=== PATIENT | male | born 1955 | race Caucasian/White ===

== ENCOUNTER 2020-10-05 08:00 | Day surgery (SDC) | payer OTHER ==
[~2020-10-05] VITALS: Ht 177.8 cm; Wt 98.0 kg
[~2020-10-05 08:00] MED LIST: EPLE25 PO; FERSU300 PO; FURO20 PO; GABA300 PO; LACT10SY PO; POTA10T PO
== END 2020-10-05 09:59 | disposition home or self-care (01) ==
LOC: ORSCSDS 08:00
PROVIDERS: Internal Medicine Gastroenterology
PROC: 06L38CZ Occlusion of Esophageal Vein with Extraluminal Device, Via Natural or Artificial Opening Endoscopic (ICD-10-PCS; principal; 2020-10-05 09:15)
DX: I85.01 Esophageal varices with bleeding (principal); K74.60 Unspecified cirrhosis of liver; F17.210 Nicotine dependence, cigarettes, uncomplicated; Z79.899 Other long term (current) drug therapy
CPT/HCPCS: J0461; J2001; J2250; J2405; J2704; J7120

== ENCOUNTER 2023-01-20 08:20 | Day surgery (SDC) | payer OTHER ==
[~2023-01-20] VITALS: Ht 172.7 cm; Wt 95.0 kg
--- NOTE | 2023-01-20 07:08 | NUR ---
01/20/23 [address] ACOSTA, SEE ANESTHESIA RECORDS.
[~2023-01-20 08:20] MED LIST changes: +Inderal 20 mg T20 MG PO; +SPIR50 PO
[2023-01-20 08:55] VITALS: BP 113/69
[2023-01-20] MEDS ORDERED: PREG100 PO (09:04)
[2023-01-20] MEDS ORDERED: PANT40 PO (09:04)
[2023-01-20] MEDS ORDERED: MAGNESIUM OXID500 MG PO (09:04)
[2023-01-20] MEDS ORDERED: SPIR50 PO (09:05)
[2023-01-20] MEDS ORDERED: FURO20 PO (09:06)
[2023-01-20] MEDS ORDERED: Inderal 20 mg T20 MG PO (09:06)
--- NOTE | 2023-01-20 09:17 | NUR ---
Ambulatory in Day Surgery. Patient confirms NPO status and agrees with scheduled surgery. Pre-Op teaching done. Pt verbalizes understanding. Patient States Post-Procedure ride home has been arranged. History, Chart, Medications and Allergies reviewed before start of procedure.
[2023-01-20 10:25] VITALS: BP 112/69
--- NOTE | 2023-01-20 10:29 | NUR ---
REPORT RECEIVED FROM MARION NOVA RN. PT ABLE TO REPOSITION SELF IN BED. PT REQUESTING PO FLUIDS AND TOLERATING THEM WELL. PT DENIES PAIN OR DISCOMFORT AT THIS TIME. AT BEDSIDE.
[2023-01-20 10:41] VITALS: BP 115/63
--- NOTE | 2023-01-20 10:53 | NUR ---
Patient up to Ambulate independently. Gait steady. VSS. Discharge instructions reviewed with patient. Patient verbalizes understanding. Copy given to patient to take home. Patient States Post-Procedure ride home has been arranged. Discharged via wheelchair to private car for ride home. PT BELONGINGS RETURNED TO PT.
== END 2023-01-20 23:01 | disposition home or self-care (01) ==
LOC: ORSCMMR 08:20 → ORD 10:00 → ORSCMMR 10:00
PROVIDERS: Student in an Organized Health Care Education/Training Program
PROC: 0DB68ZX Excision of Stomach, Via Natural or Artificial Opening Endoscopic, Diagnostic (ICD-10-PCS; principal; 2023-01-20 10:00)
DX: K70.30 Alcoholic cirrhosis of liver without ascites (principal); I85.10 Secondary esophageal varices without bleeding; K76.6 Portal hypertension; K31.89 Other diseases of stomach and duodenum; K29.50 Unspecified chronic gastritis without bleeding; Z79.899 Other long term (current) drug therapy; Z87.891 Personal history of nicotine dependence
CPT/HCPCS: 88305; 88342; J2704; J7120